=== PATIENT | male | born 1990 | race Caucasian/White ===

== ENCOUNTER 2020-01-02 12:42 | Emergency (ER) | payer SELFPAY ==
--- NOTE | 2020-01-02 13:16 | ED.PDOC ---
History of Present Illness - General Chief Complaint: Respiratory Problem Stated Complaint: SOB, body aches, sore throat Time Seen by Provider: 01/02/20 12:59 Source: patient - History of Present Illness Comments: This is a 29-year-old male with no significant past medical history presented to emergency department with cough, sore throat, body aches and "flu like symptoms" that began this morning. He denies any fever, but does report associated chills. He has a known COVID contact with his girlfriend's brother approximately 2 weeks ago, no symptoms until today. He denies any other known sick contacts. No recent travel. Timing/Duration: this morning Cough Quality/Degree: no cough Possible Cause: illness exposure Improving Factors: nothing Worsening Factors: nothing Associated Symptoms: cough, fever/chills, muscle aches, sore throat Respiratory Risk Factors: exposure to illness Allergies/Adverse Reactions: Allergies NO KNOWN ALLERGY Allergy (Verified 01/02/20 12:58) Home Medications: Ambulatory Orders Albuterol Inhaler [Ventolin Hfa Inhaler] 108 mcg INH Q5H #1 inh 01/02/20 Ibuprofen [Motrin] 400 mg PO Q6H PRN #20 tab 01/02/20 Ondansetron Odt [Zofran ODT] 4 - 8 mg PO Q6H PRN #15 tab 01/02/20 guaiFENesin W/CODEINE LIQ [Robitussin AC] 10 ml PO Q6H PRN #120 ml 01/02/20 Review of Systems - Review of Systems Constitutional: States: chills. Denies: fever EENTM: States: nose congestion, throat pain. Denies: ear pain, nose pain, mouth pain Respiratory: States: cough, short of breath. Denies: orthopnea, stridor Cardiology: Denies: chest pain, edema Gastrointestinal/Abdominal: Denies: abdominal pain, diarrhea, nausea, vomiting Genitourinary: Denies: dysuria, hematuria Musculoskeletal: Denies: joint pain, joint swelling, muscle stiffness, neck pain Skin: Denies: lesions, rash Neurological: Denies: headache, paresthesia, weakness Endocrine: States: no symptoms reported Hematologic/Lymphatic: States: no symptoms reported Past Medical History (General) - Patient Medical History Hx Stroke: No Hx of COPD: No Hx Cardiac Disorders: No Hx Hypertension: No Hx Thyroid Disease: No Hx Diabetes: No Hx Cancer: No Surgical History: no surgical history - Vaccination History Hx Tetanus, Diphtheria Vaccination: No Hx Influenza Vaccination: No Hx Pneumococcal Vaccination: No - Social History Hx Tobacco Use: Yes Hx Alcohol Use: No Hx Substance Use: No Hx Substance Use Treatment: No Hx Depression: No - Female History Patient is a Female of Child Bearing Age (10 -59 yrs old): No Patient : No Family Medical History - Family History Mother Family History: No Known Living Status: Still Living Physical Exam - Physical Exam General Appearance: Alert, Comfortable ENT Exam: normal ENT inspection, hearing grossly normal Neck: full range of motion, supple Respiratory: lungs clear, normal breath sounds, no respiratory distress, no accessory muscle use Cardiovascular/Chest: normal peripheral pulses, regular rate, rhythm, no edema, no gallop, no JVD, no murmur Gastrointestinal/Abdominal: non tender, soft Extremity: non-tender, normal inspection, no pedal edema Neurologic: no motor/sensory deficits, alert, normal mood/affect, oriented x 3 Skin Exam: normal color, warm/dry Progress - Progress Progress: 01/02/20 13:41 Rechecked. Discussed x-ray results. Explained concerned about possible COVID and need to quarantine until tests are resulted. Patient elected not to stay in the emergency department and till test was resulted, will call back in 2 to 3 hours for results. Discussed return to work warnings. Strict ER warnings given to return for worsening. DDX:COVID-19 versus other viral URI, pneumonia MDM: Flulike symptoms, known history of COVID-19 contact. O2 sats normal, tolerating p.o., no altered mental status at this time. His chest x-ray is clear. COVID- 19 test is pending. No indication for admission or extensive work-up at this time. Strict warnings given to return the emergency room for worsening symptoms Justo Moreno DO [id number] - Results/Orders Results/Orders: Chest x-ray reviewed personally by me at 1:10 PM. No acute process, no infiltrates, no pneumothorax EXAM DESCRIPTION: Chest,1 View CLINICAL HISTORY: 29 years Male, Cough, SOB, body aches COMPARISON: None. FINDINGS: One view/radiograph Heart size and pulmonary vessels are within normal limits. There is no pneumothorax or pleural effusion. The lungs are clear bilaterally. The soft tissues are unremarkable. No acute osseous findings. IMPRESSION: No acute cardiopulmonary abnormality. Electronically signed by: Yomi Moses MD 01/02/2020 1:17 PM Departure - Departure Clinical Impression: Acute viral bronchitis, Exposure to COVID-19 virus Disposition: Discharge to Home or Self Care Condition: Good Departure Forms: ED Discharge - Pt. Copy, ED Discharge - Work Release, Patient Portal Self Enrollment Diet: resume usual diet Activity: increase activity as tolerated Prescriptions: Ibuprofen [Motrin] 400 mg PO Q6H PRN #20 tab PRN Reason: Pain guaiFENesin W/CODEINE LIQ [Robitussin AC] 10 ml PO Q6H PRN #120 ml PRN Reason: Cough Albuterol Inhaler [Ventolin Hfa Inhaler] 108 mcg INH Q5H #1 inh Ondansetron Odt [Zofran ODT] 4 - 8 mg PO Q6H PRN #15 tab PRN Reason: Nausea Home Medications: Ambulatory Orders Albuterol Inhaler [Ventolin Hfa Inhaler] 108 mcg INH Q5H #1 inh 01/02/20 Ibuprofen [Motrin] 400 mg PO Q6H PRN #20 tab 01/02/20 Ondansetron Odt [Zofran ODT] 4 - 8 mg PO Q6H PRN #15 tab 01/02/20 guaiFENesin W/CODEINE LIQ [Robitussin AC] 10 ml PO Q6H PRN #120 ml 01/02/20 Additional Instructions: Return to the emergency room immediately for worsening shortness of breath, intractable vomiting, changes in mental status, or any other concerns
[2020-01-02 13:58] VITALS: BP 112/76; TEMP 98.7; O2SAT 97
== END 2020-01-02 13:57 | disposition home or self-care (01) ==
LOC: ER 12:42
DX: J20.8 Acute bronchitis due to other specified organisms (principal); Z20.828 Contact with and (suspected) exposure to other viral communicable diseases